=== PATIENT | female | born 1950 | race Caucasian/White ===

== ENCOUNTER → 2016-07-07 | Outpatient (CLI) | payer OTHER, MEDICARE ==
--- NOTE | 2016-07-07 11:29 | MA ---
Screening Digital Mammogram With Tomosynthesis and iCAD Indication: Routine screening. Personal history of left breast focal atypical ductal hyperplasia. No history of cancer. Technique: Standard digital CC projections were obtained. Digital breast tomosynthesis was performed in the MLO projection with reconstruction at 1.0 mm slice thickness. Composite MLO views were recons tructed. This examination was processed by the iCAD computer-aided detection system. Comparison: June 2015, April 2014, March 2013, March 2012, and February 2011. Breast density: Type B. Findings: CAD was reviewed. No suspicious microcalcifications, mass, or architectural distortion. No recurrent microcalcifications in inner left breast at the site of previous excisional biopsy. Impression: Negative mammogram. BI-RADS 1. Recommendation: Routine screening is recommended in one year. [facility] will send a result letter to the patient. Negative mammography should not preclude additional workup of a clinically suspicious finding. The patient's information is entered into a reminder system with a target due date for her next mammo gram.
== END ==
LOC: FIMAGING 09:47
DX: Z12.31 Encounter for screening mammogram for malignant neoplasm of breast (principal)
CPT/HCPCS: G0202

== ENCOUNTER → 2017-08-02 | Outpatient (CLI) | payer OTHER, MEDICARE | LOC: FIMAGING 13:11 | PROVIDERS: ATTEND Internal Medicine | DX: Z12.31 Encounter for screening mammogram for malignant neoplasm of breast (principal) ==

== ENCOUNTER 2018-01-26 15:48 | Inpatient (IN) | payer OTHER, MEDICARE ==
--- NOTE | 2018-01-26 16:39 | PDHPUP ---
History & Physical Update H&P update statement: This history and physical update is based on an assessment of the patient which was completed after admission or registration (within 24 hours), but prior to the surgery/procedure. H&P update: H&P reviewed & patient examined
[2018-01-26] MEDS ORDERED: LR 1,000 ML IV ONE (16:41)
[2018-01-26] MEDS ORDERED: fentaNYL 100 MCG/2 ML INJ ONE ×3 (16:59→19:16)
[2018-01-26] MEDS ORDERED: PROPOFOL 200 MG/20 ML VIAL ONE (17:00)
[2018-01-26] MEDS ORDERED: LIDOCAINE 2% 2 ML INJ ONE ×2 (17:01)
[2018-01-26] MEDS ORDERED: DEXAMETHASONE 4 MG/ML VIAL ONE (17:11)
[2018-01-26] MEDS ORDERED: KETOROLAC 30 MG/1 ML SDV ONE (17:11)
[2018-01-26] MEDS ORDERED: ONDANSETRON 4 MG/2 ML VIAL ONE ×2 (17:11→19:38)
[2018-01-26] MEDS ORDERED: HYDROmorphONE/DILAUDID 1 MG/ML INJ IVP PRN ×2 (17:15→17:44)
[2018-01-26] MEDS ORDERED: HYDROCODONE/APAP 5/325 TAB PO PRN ×2 (17:15→17:44)
[2018-01-26] MEDS ORDERED: ONDANSETRON 4 MG/2 ML VIAL IVP PRN ×2 (17:15→17:44)
[2018-01-26] MEDS ORDERED: CHLORHEXIDINE GLUC HIBICLENS 118 ML BTL TP ONE (17:28)
--- NOTE | 2018-01-26 17:31 | PDANEPAE ---
ANE History of Present Illness left knee scope ANE Past Medical History - Cardiovascular History Hx Hypertension: No Hx Arrhythmias: No Hx Chest Pain: No Hx Coronary Artery / Peripheral Vascular Disease: No Hx CHF / Valvular Disease: No Hx Palpitations: No - Pulmonary History Hx COPD: No Hx Asthma/Reactive Airway Disease: Yes Hx Sleep Apnea: Yes - Neurologic History Hx Cerebrovascular Accident: No Hx Seizures: No Hx Dementia: No - Endocrine History Hx Diabetes: No Obesity: yes - Renal History Hx Renal Disorders: No - Liver History Hx Hepatic Disorders: No - Neurological & Psychiatric Hx Hx Neurological and Psychiatric Disorders: No - Cancer History Hx Cancer: Yes Cancer History Comment: pre cancerous breast lum-did not require treatment - Congenital Disorder History Hx Congenital Disorders: No - GI History Hx Gastrointestinal Disorders: No - Other Health History Other Health History: allergies to tape - Surgical History Prior Surgeries: . arthroscopy left knees. left breast lumpectomy ANE Review of Systems Review of Systems: - Exercise capacity METS (RN): 3 METS ANE Patient History - Allergies Allergies/Adverse Reactions: iodine Allergy (Intermediate, Verified 04/28/12 07:47) Hives ADHESIVES Allergy (Intermediate, Uncoded 04/28/12 07:47) chorahexidene Allergy (Uncoded 01/26/18 16:08) - Home Medications Home medications: home medication list seen and reviewed - NPO status NPO Since - Liquids (Date): 01/26/18 NPO Since - Liquids (Time): 08:15 NPO Since - Solids (Date): 01/26/18 NPO Since - Solids (Time): 08:15 - Anes Hx Anes Hx: no prior problems - Smoking Hx Smoking Status: Never smoked ANE Labs/Vital Signs - Vital Signs Blood Pressure: 125/72 Heart Rate: 84 Respiratory Rate: 16 O2 Sat (%): 95 Height: 149.86 cm Weight: 68.039 kg ANE Physical Exam - Airway Neck exam: FROM Mallampati Score: Class 2 Mouth exam: normal dental/mouth exam - Pulmonary Pulmonary: no respiratory distress - Cardiovascular Cardiovascular: regular rate and rhythym - ASA Status ASA Status: III ANE Anesthesia Plan Anesthesia Plan: GA w LMA Urgent/Emergent Case: Hang telles completed preop but documented later for safe timely pt care
--- NOTE | 2018-01-26 17:36 | POSTANESTH ---
Post Anesthetic Evaluation Cardiovascular Status: Normal, Stable Respiratory Status: Normal, Stable Level of Consciousness/Mental Status: Can Participate in Eval, Mildly Sleepy, Arousable Pain Control: Adequate, Prn Tx Ordered Nausea/Vomiting Control: Adequate, Prn Tx Ordered Complications Possibly Related to Anesthesia: None Noted
[2018-01-26] MEDS ORDERED: ceFAZolin 1 GM VIAL ONE ×2 (17:37)
[2018-01-26] MEDS ORDERED: oxyCODONE IR 5 MG TAB PO PRN (17:44)
[2018-01-26] MEDS ORDERED: fentaNYL 100 MCG/2 ML INJ IVP PRN (17:44)
[2018-01-26] MEDS ORDERED: NALOXONE HCL 0.4 MG/ML INJ IVP PRN (17:44)
[2018-01-26] MEDS ORDERED: PROMETHAZINE HCL 25 MG/ML INJ IVP PRN (17:44)
[2018-01-26] MEDS ORDERED: ALBUTEROL 3 ML DEYVIAL IH PRN (17:44)
[2018-01-26] MEDS ORDERED: LR 500 ML IV PRN (17:44)
[2018-01-26] MEDS ORDERED: LABETALOL HCL 5 MG/ML 20 ML MDV IVP PRN (17:44)
[2018-01-26] MEDS ORDERED: ACETAMINOPHEN 500 MG TAB PO PRN (17:44)
--- NOTE | 2018-01-26 18:17 | POSTOPPROG ---
Post Op Note Date of Operation: 01/26/18 Surgeon: Herson Khan Data Processing Clerk: none Anesthesia: GET(General Endotracheal) Pre-op Diagnosis: Left septic knee Post-op Diagnosis: same, lat meniscus tear Indication: above Procedure: I and D and partial lateral menisectomy Inf/Abcess present in the surg proc area at time of surgery?: Yes Depth: Organ Space EBL: Minimal Specimen(s): left knee fluid
--- NOTE | 2018-01-26 18:35 | GOP ---
[f rep st] OPERATIVE REPORT DATE OF OPERATION: 01/26/2018 SURGEON: Herson Khan MD OPTICAL ELEMENT COATER: None. PREOPERATIVE DIAGNOSIS: Left septic knee. POSTOPERATIVE DIAGNOSIS: Left septic knee, plus left knee lateral meniscus tear. PROCEDURE PERFORMED: FINDINGS: SPECIMENS: Synovial fluid for culture and Gram stain. ESTIMATED BLOOD LOSS: 5 mL. INDICATIONS: This is a female who presented to my clinic after I was called by an outside physician for evaluation of septic knee. Her cell count showed 70,000, and I booked her for surgery this eveni ng for arthroscopic irrigation and debridement given the likely infection with the high white count. Her Gram stain showed only white cells, and her cultures were still pending. We discussed risks and benefits of need for further surgery, including further washout, need for other intervention, contin ued pain, need for additional operations, nerve injury, blood clot, continued pain, arthritis of the knee, and chronic infection. Should would like to proceed. Informed consent was obtained. All ques tions were answered. DESCRIPTION OF PROCEDURE: She was marked preoperatively. She was taken to the operative suite, ster ilely prepped and draped in normal fashion. I used only a chlorhexidine Hibiclens scrub as she is al lergic to Betadine and chlorhexidine, but we need to sterilize the area. We wiped this off very well . She was sterilely draped. A time-out was performed verifying the patient, side, site and location . All were in agreement with the team. We began by establishing a lateral portal. I collected the fluid after placing the trocar and sent t his off for specimen. She was then given 2 g Ancef. I made a medial portal and began shaving this. There was dark murky fluid in the joint, and as I began shaving, this did clear up. She had grade 2 degenerative changes in her patellofemoral, medial and lateral compartments. She had a small menisc us tear laterally, and I performed a partial meniscectomy, this with a shaver. She had some synoviti s and hyperemia around the notch, which was debrided. I ran 9 L of fluid through her knee. I felt I had this very well irrigated and cleaned out. The scope and instruments were removed. The knee was dried out. She was closed with 3-0 nylon. She was taken to PACU in stable condition. She was star darcie on IV antibiotics. Will consult Infectious Diseases. COMPLICATIONS: None. DRAINS: None /[id number]/MODL
[2018-01-27] MEDS: ceFAZolin 2 GM/DEXTROSE 100 ML IV SCH ×2 (02:06→11:24)
[2018-01-27 11:52] VITALS: BP 123/60
--- NOTE | 2018-01-27 17:20 | GDS ---
[f rep st] DISCHARGE SUMMARY HOSPITAL COURSE: She was admitted after arthroscopic I and D for a concern for left septic knee. Sh maggie did well overnight. At surgery, there was lots of inflammation, but no gross pus found. She was a febrile overnight and culture does not grow anything. The Gram stain was negative. She did have a f ew positive birefringent crystals, and we felt this was maybe more consistent with pseudogout. [facility] er, with white count of 70,000, she did need to undergo an arthroscopic I and D as her knee was quite painful and this was significantly concerning for infection. She did well overnight. I felt she me t criteria for discharge home. We will send her out on oral antibiotics of Bactrim as well as give h er [place] for pain med. She will resume previous home medications. If her cultures turn positive, we will have her consult an infectious disease doctor about further antibiotic treatment. However, she is doing quite well at discharge, able to bear weight and move this, and I feel she meets criteria. She will follow up with me in 1 week. She is on a regular diet and weight bear as tolerated. /[id number]/MODL
== END 2018-01-27 13:18 | disposition home or self-care (01) | DRG 489 ==
LOC: FSGY 15:48 → F3N 17:15
PROVIDERS: ADMIT Orthopaedic Surgery; ATTEND Orthopaedic Surgery
DX: M11.262 Other chondrocalcinosis, left knee (principal); J45.909 Unspecified asthma, uncomplicated; E78.00 Pure hypercholesterolemia, unspecified; K21.9 Gastro-esophageal reflux disease without esophagitis; G47.30 Sleep apnea, unspecified; M06.9 Rheumatoid arthritis, unspecified
CPT/HCPCS: 97161-GP; 97165-GO; G8978-GP-CI; G8979-GP-CI; G8980-GP-CI; G8987-GO-CI; G8988-GO-CI; G8989-GO-CI; J0690; J1100; J1885; J2405; J2704; J3010

== ENCOUNTER → 2018-02-15 | Outpatient (CLI) | payer OTHER, MEDICARE | LOC: BMCIMAGING 09:41 | PROVIDERS: ATTEND Internal Medicine Rheumatology | DX: M25.861 Other specified joint disorders, right knee (principal) ==

== ENCOUNTER → 2018-10-06 | Outpatient (CLI) | payer OTHER, MEDICARE | LOC: FIMAGING 10:02 | PROVIDERS: ATTEND Internal Medicine | DX: Z12.31 Encounter for screening mammogram for malignant neoplasm of breast (principal) ==